=== PATIENT | female | born 1945 | race Caucasian/White ===

== ENCOUNTER 2016-04-26 14:00 | Emergency (ER) | payer MEDICARE ==
[~2016-04-26 14:00] MED LIST: ACET1CAP18 PO; ANAS1TAB PO; NAPR220T95 PO
[2016-04-26 14:05] VITALS: BP 174/87; PULSE 74; RESP 18; TEMP 97.9; O2SAT 98
[2016-04-26 14:23] VITALS: BP 198/92; PULSE 85; RESP 18; O2SAT 96
[2016-04-26 14:45] VITALS: BP_SYST 185; BP_SYST 200; BP_DIAS 87; BP_DIAS 93; PULSE 82
--- NOTE | 2016-04-26 14:52 | RADRPT ---
EXAM DATE/TIME: 04/26/2016 14:35 [place] COMPARISON: No previous studies available for comparison. INDICATIONS : Foreign body. Patient stepped on a sewing needle.. Needle stuck in the first digit of the right foot. MEDICAL HISTORY : None. SURGICAL HISTORY : None. ENCOUNTER: Initial ACUITY: 2 days PAIN SCORE: 10/10 LOCATION: Right foot, first digit. FINDINGS: 13 mm long radiopaque foreign body compatible with a needle fragment is seen in the soft tissues dist ally of the great toe. The needle runs obliquely in the soft tissues medial to the distal phalanx. Th e base of the needle is estimated about 3 mm beneath the skin. The bone is not involved. CONCLUSION: 13 mm long needle fragment in the soft tissues medial to the distal phalanx of the great toe as descr ibed above. The bone is not involved. Cornelius Schultz MD on April 26, 2016 at 14:49 Board Certified Radiologist. This report was verified electronically.
[2016-04-26] MEDS ORDERED: ceFAZolin 2 GM PREMIX 50 ML IV ONE (15:00)
--- NOTE | 2016-04-26 15:05 | PD ---
HPI Chief Complaint: Skin Problem Time Seen by Provider: 14:22 Travel History International Travel<30 days: No Contact w/Intl Traveler<30days: No Traveled to known affect area: No History of Present Illness HPI 70-year-old female came to the emergency with history of a foreign body in her right great toe. She stepped on a needle yesterday which broke and the tip was still inside the great toe. She went to the urgent care where an x-ray was done and she was told about this foreign body. She was asked to come to the emergency room. However they did not send her with a disc of the film. No history of fever or chills. Upon arrival patient had significantly elevated blood pressure. As per her she does not have history of hypertension and is not on any medications for that. She does not seem to be extremely uncomfortable either. PFSH Past Medical History Narrative Medical List of her past medical history as reviewed from the nursing note. Cancer: Yes (BREAST) Cardiovascular Problems: Yes Diminished Hearing: No Immunizations Current: Yes Radiation Therapy: Yes (2007) Menopausal: Yes Past Surgical History Gynecologic Surgery: Yes (PARTIAL MASTECTOOMY) Mastectomy: Yes (rt partial/LEFT TOTAL) Social History Alcohol Use: Yes ("COUPLE A WEEK") Tobacco Use: No Substance Use: No Allergies-Medications (Allergen,Severity, Reaction): Coded Allergies: No Known Allergies (Verified , 03/01/16) Comments No known drug allergies. Reported Meds & Prescriptions Reported Meds & Active Scripts Active Reported Tylenol (Acetaminophen) 325 Mg Cap 650 Mg PO Q6H PRN Aleve (Naproxen Sodium) 220 Mg Tab 220 Mg PO BID PRN Anastrozole 1 Mg Tab 1 Mg PO DAILY Narrative Medication List of her home medications reviewed from the nursing note. Review of Systems Except as stated in HPI: all other systems reviewed are Neg Physical Exam Narrative GENERAL: Awake, alert, no obvious distress SKIN: Warm and dry. HEAD: Atraumatic. Normocephalic. EYES: Pupils equal and round. No scleral icterus. No injection or drainage. ENT: No nasal bleeding or discharge. Mucous membranes pink and moist. NECK: Trachea midline. No JVD. CARDIOVASCULAR: Regular rate and rhythm. No murmur appreciated. RESPIRATORY: No accessory muscle use. Clear to auscultation. Breath sounds equal bilaterally. GASTROINTESTINAL: Abdomen soft, non-tender, nondistended. Hepatic and splenic margins not palpable. MUSCULOSKELETAL: No obvious deformities. No clubbing. No cyanosis. No edema. Right great toe is swollen and red with a extremely tiny erythematous entrance wound. NEUROLOGICAL: Awake and alert. No obvious cranial nerve deficits. Motor grossly within normal limits. Normal speech. PSYCHIATRIC: Appropriate mood and affect; insight and judgment normal. Data Data Last Documented VS Vital Signs Date Time Temp Pulse Resp B/P Pulse Ox O2 Delivery O2 Flow Rate FiO2 04/26/16 16:30 98.3 83 18 170/73 95 04/26/16 15:17 Room Air Orders Toe (Min 2vws) (04/26/16 ) Cefazolin 2 Gm Premix (Ancef 2 Gm Premix (04/26/16 15:00) Tetanus/Diphtheria Tox Adult (Tetanus/Di (04/26/16 15:30) Shoe Post Op (04/26/16 ) Shoe Cast (04/26/16 ) MDM Medical Decision Making Medical Screen Exam Complete: Yes Emergency Medical Condition: Yes Medical Record Reviewed: Yes Differential Diagnosis Retained foreign body in the great toe Narrative Course 3:03 PM x-ray shows the needle which is deep into the soft tissue along the side of the distal phalanx. I have ordered IV Ancef 2 g. The foreign body is deep enough where it will require incision to reach into the deeper tissue to get the foreign body out. This is beyond my scope of practice and I have let the patient know about that. I have put a call out for podiatry. Awaiting to hear back from them. 3:26 PM case was discussed with the teletype mechanic Dr. Adams. He is on his way to see the patient and take care of the foreign body. Patient had me know that her last tetanus shot was more than 30 years ago. I've ordered a dose for her. 4:01 PM the teletype mechanic is currently here seeing the patient. 4:17 p.m. the teletype mechanic wanted the patient to stay overnight to be scheduled for tomorrow which patient did not want to. He wanted us to discharge her in which case with antibiotic and a postop shoe and he will operate on her on Thursday. Patient is comfortable with this plan. Patient has a prescription for Bactrim DS was given to her by the urgent care. She will get that filled and continue with that antibiotic. Procedures EKG Prior to Arrival: No Physician Communication Physician Communication Dr. Adams Diagnosis Primary Impression: Foreign body of toe Qualified Code: S90.454A - Foreign body of toe, right, initial encounter Referrals: Adan Adams DPM 2 days Additional Instructions: Dr. Adams will try to contact to for the scheduled surgery next week. If he doesn't hear back please give called to the number that has been provided to you. Take the medication as per the antibiotic prescription direction. The postop shoe on during periods of ambulation. Disposition: 01 DISCHARGE HOME Condition: Stable Caro Martin MD Apr 26, 2016 15:05
[2016-04-26 15:17] VITALS: BP 177/95; PULSE 86; RESP 18; O2SAT 94
[2016-04-26] MEDS ORDERED: TETANUS/DIPHTHERIA TOXOID ADULT 0.5 ML VIAL IM ONE (15:30)
[2016-04-26 16:30] VITALS: BP 170/73; TEMP 98.3
== END 2016-04-26 17:00 | disposition home or self-care (01) ==
LOC: NEPE 14:00
DX: S91.141A Puncture wound with foreign body of right great toe without damage to nail, initial encounter (principal); Z23 Encounter for immunization; R03.0 Elevated blood-pressure reading, without diagnosis of hypertension; W45.8XXA Other foreign body or object entering through skin, initial encounter; Y99.8 Other external cause status
CPT/HCPCS: 73660; 90471; 90714; 96374; 99283; J0690; L3260

== ENCOUNTER → 2016-05-05 | Day surgery (SDC) | payer MEDICARE ==
[~2016-05-05] MED LIST changes: +LACTATED RINGER'S 1000 ML INJ 1,000 ML ONE; +LIDOCAINE 1%/EPINEPHrine 1:100,000 SOLN 30 ML VIAL ONE; +LIDOCAINE HCL 1% PF 30 ML VIAL ONE; +MIDAZOLAM HCL 2 MG/2 ML VIAL ONE; +PROPOFOL 200 MG/20 ML AMP IV ONE; +ceFAZolin 2 GM PREMIX 50 ML ONE
--- NOTE | 2016-05-05 14:07 | TN ---
cc: COLEEN WALKER M.D. DATE OF SURGERY: 05/05/2016 PREOPERATIVE DIAGNOSIS Foreign body, right great toe. POSTOPERATIVE DIAGNOSIS Foreign body, right great toe. PROCEDURE Removal of foreign body right great toe under fluoroscopic visualization. SURGEON Dr. Coleen Walker ANESTHESIA Local 1% plain lidocaine with TIVA. INDICATIONS This is a very pleasant 70-year-old woman I am familiar with due to her breast cancer treatment who apparently had a sewing needle break off into her right great toe. She was placed on antibiotics and there was some insurance issues and availability for surgery with a jet worker and therefore we were able to get her in for surgical removal of the foreign body under fluoroscopic visualization. INTRAOPERATIVE FINDINGS Successful removal of the entirety of the metallic foreign body from the right great toe as visualized under direct fluoroscopy. ESTIMATED BLOOD LOSS Less than 5 mL. DESCRIPTION OF PROCEDURE IN DETAIL The patient was identified as Tiffany Davis, taken to the operating room and placed in supine position. Following IV sedation by Anesthesia the right great toe and foot were prepped and draped in the usual sterile fashion with Betadine. A timeout procedure was performed. Following completion of the timeout procedure to everyone's satisfaction within the room, mosquito hemostats under fluoroscopy were used to identify the location of the foreign body within the right great toe. 1% plain lidocaine was injected at the base of the toe on either side for a toe block. More local anesthetic was placed where the proposed incision was to be made. In the lines of the skin a small stab incision was made with a 15 blade scalpel and a hemostat was used to spread the skin apart. Under direct fluoroscopy the end of the foreign body was identified and it was able to be smoothly withdrawn from the right great toe in its entirety. Following removal of the foreign body the toe was fluoroscopically examined and no retained foreign body was seen. The image was saved. The wound was copiously irrigated with saline. Pressure was held for hemostasis. A dressing of Xeroform gauze and Brodie was then placed in a standard fashion for a right great toe dressing. The patient tolerated the procedure without apparent complication. Sponge, needle and instrument counts were correct at the end of the case. MD JO Cody/ANTONIO /1:57 PM /2:02 PM
== END | disposition home or self-care (01) ==
LOC: ESDC 11:45
PROVIDERS: ATTEND Surgery Trauma Surgery
DX: S91.141A Puncture wound with foreign body of right great toe without damage to nail, initial encounter (principal)
CPT/HCPCS: 00400; 28190; 73620; 76000; J0690; J2250; J3010; J7120